=== PATIENT | female | born 1970 | race African-American/Black ===

== ENCOUNTER → 2018-06-04 | Outpatient (CLI) | payer OTHER ==
[~2018-06-04] MED LIST: PROTONIX 20 MG20 M1 PO; ZOFRAN ODT4 MG PO
== END ==
LOC: RAD 01:59
DX: Z12.31 Encounter for screening mammogram for malignant neoplasm of breast (principal); D25.9 Leiomyoma of uterus, unspecified

== ENCOUNTER → 2018-06-22 | Outpatient (CLI) | payer OTHER | LOC: RAD 01:50 | DX: R92.8 Other abnormal and inconclusive findings on diagnostic imaging of breast (principal) ==

== ENCOUNTER → 2018-09-09 | Outpatient (CLI) | payer OTHER | LOC: ULTRA 07:49 | DX: R10.9 Unspecified abdominal pain (principal); R14.0 Abdominal distension (gaseous) ==

== ENCOUNTER → 2019-04-27 | Outpatient (CLI) | payer OTHER | LOC: NUC 08:08 | DX: R10.11 Right upper quadrant pain (principal) ==

== ENCOUNTER 2019-06-21 05:24 | Observation (INO) | payer OTHER ==
[~2019-06-21] VITALS: Ht 170.2 cm; Wt 77.1 kg
[~2019-06-21 05:24] MED LIST changes: +MULTIVITAMINS1 EAC7 PO
[2019-06-21 12:02] LABS: CALCIUM 9.2 mg/dL (8.5-10.1); POTASSIUM 3.4 mmol/L (3.5-5.1)
[2019-06-21 12:42] VITALS: BP 143/93
--- NOTE | 2019-06-21 15:31 | H ---
[facility] [place] [address] HISTORY AND PHYSICAL Name: TARAN BROCK Julian Room #: 150-5 [facility]..#: [id number] Admission: 06/21/19 ������������������ Attend Phys: Yves Small MD Discharge: ������������������ Date of : 66 Report #: [id number] THIS REPORT FOR: //name// CC: Yves Fu DATE OF SERVICE: 06/21/2019 PREOP H AND P PREOPERATIVE DIAGNOSIS: Acalculous cholecystitis. HISTORY OF PRESENT ILLNESS: The patient is a 48-year-old who has been complaining of abdominal pain. She says she usually has pain around her menstrual cycle time. Pain is located in the epigastric area. She has 3 episodes per month. The pain is usually short lived. This started October of last year. The pain subsided and then returned in March. Occasionally, the pain move to the right upper quadrant. Does not go to her back or shoulder. No nausea or vomiting. No increased gas. No diarrhea. The patient does have bloating associated with this. She says she feels better if she massages that area or presses that area. She had a particular episode in March after eating fried food. She developed pain that was sharp, needle-like jabbing her. The pain was rated as 6/10. Fried food typically causes constipation. An ultrasound was performed in May, she had uterine fibroids, no stones were seen. The patient had a PIPIDA scan done, which showed a normal gallbladder ejection fraction of 60%, but she had reproduction of her pain in the epigastric area. The patient is felt to have acalculous cholecystitis with multiple episodes of pain. She is recommended to have her gallbladder removed. PAST MEDICAL HISTORY: Possible gastroesophageal reflux disorder, mild obesity. The patient denies any heart disease, denies high blood pressure, denies diabetes, denies liver disease, denies kidney disease, denies lung disease, denies any history of bleeding or blood clot. The patient has a history of obesity. PAST SURGICAL HISTORY: The patient had hernia surgery in 2002. ALLERGIES: She is not allergic to anything. MEDICATIONS: Omeprazole 20 mg. She had been on Protonix before that. This was started in 2012 and 2013. FAMILY HISTORY: High blood pressure. There is diabetes that runs on father's side. SOCIAL HISTORY: Occupational: The patient works at a desk job. Does not smoke [facility] [address] [place] [address] HISTORY AND PHYSICAL Name: TARAN BROCK Julian Room #: 150-5 [facility]#: [id number] Admission: 06/21/19 ������������������ Attend Phys: Yves Small MD Discharge: ������������������ Date of : 66 Report #: [id number] and drink. REVIEW OF SYSTEMS: No headache, blurred vision, no chest pain, shortness of breath, palpitation. No back pain, no lower extremity pain. No numbness or weakness. IMPRESSION: The patient is a 48-year-old with abdominal pain that has been recurrent, periodic attack about 3 times a month. This started in October and then picked up again in March. Her pain location is fairly classic gallbladder disease. She does not have any stones. PIPIDA scan did reproduce her pain. She has had history of GERD, which I think it probably is part of the gallbladder process also. RECOMMENDATION: The patient is recommended to have gallbladder removed. She is healthy. She will tolerate surgery well. Laparoscopic cholecystectomy was discussed in detail and the patient understands the procedure, the risk of bleeding, infection was discussed, risk of bile leak, risk of common bile duct injury was discussed. The patient does want to proceed with surgery. ��������������������������������������������� <ELECTRONICALLY SIGNED> ���������������������������������������� By: Yves Small MD ��������������������������������������������� 06/21/19 1531 1026 1128 Yves Small MD /nt
--- NOTE | 2019-06-21 16:25 | EKG ---
[address] [address] ELECTROCARDIOGRAM REPORT Name: DALIA BROCKRA Jordan Room #: 150-5 [facility].#: [id number] ������������������ Admission: 06/21/19 ������������������ Attend Phys: Yves Small MD Discharge: ������������������ Date of : 66 Report #: [id number] ����������������������������������������������������������������� [id number] THIS REPORT FOR: //name// [facility] Test Date: 2019-06-21 Test Time: 12:09:42 Pat Name: TARAN BROCK Department: Room: 150 5 Gender: F Planning Analyst: CASA : 1970 Requested By: Yves Small Order Number: [id number] MD: Hitesh Jimenez Measurements Intervals Chama Rate: 74 P: 69 MA: 160 QRS: -2 QRSD: 90 T: 30 QT: 387 QTc: 430 Interpretive Statements Sinus rhythm No significant abnormality No previous ECG available for comparison Electronically Signed On 06-21-2019 16:24:58 CDT by Hitesh Jimenez [email or web address] ��������������������������������������������� <ELECTRONICALLY SIGNED> ���������������������������������������� By: Hitesh Jimenez MD, [facility] ��������������������������������������������� 06/21/19 1624 1209 1209 Hitesh Jimenez MD, FACC /EPI
[2019-06-21 17:40] VITALS: BP 129/92
[2019-06-21 19:25] VITALS: BP 124/91
[2019-06-21 20:32] VITALS: BP 134/90
[2019-06-21 20:50] VITALS: BP 147/90
[2019-06-21 23:55] VITALS: BP 133/82
[2019-06-22 04:45] VITALS: BP 126/72
[2019-06-22 07:37] VITALS: BP 135/83
[2019-06-22] MEDS ORDERED: HYDROCODON-ACE1 EAC7 PO (13:54)
--- NOTE | 2019-06-22 14:01 | O ---
[facility] [place] [address] OPERATIVE REPORT Name: DALIA BROCKRA Jordan [id number] Admission: 06/21/19 ������������������ Attend Phys: Yves Small MD Discharge: ������������������ Date of : 66 Report #: [id number] THIS REPORT FOR: //name// CC: Yves Fu MD PREOPERATIVE DIAGNOSES: Acalculous cholecystitis, abdominal pain. POSTOPERATIVE DIAGNOSES: Acalculous cholecystitis, abdominal pain with cholesterolosis. PROCEDURES PERFORMED: Laparoscopic cholecystectomy with cholangiogram. ANESTHESIA: General. SURGEON: Yves Small M.D. COMPLICATIONS: None. ESTIMATED BLOOD LOSS: 5 mL. PROCEDURE NOTE: With the patient under general anesthesia, abdomen was prepped and draped in sterile fashion. The patient did receive preoperative IV antibiotic. Timeout was performed. The patient has had prior umbilical hernia repair and epigastric hernia repair. An incision was made on the right side of the abdomen about an inch and a half away from the umbilicus where her previous hernia was. A cutdown was performed. A 2 cm incision was made in the skin. The anterior fascia was identified. The anterior fascia was incised sharply. The 0 Vicryl suture placed on the fascia edges for retraction. The muscle was spread. The posterior fascia was then identified. The posterior fascia was free. This was grasped with hemostat and opened under visualization. Again 0 Vicryl suture was placed on the fascial edges for retraction. Abdominal cavity was free of air. An 11 mm trocar with the balloon was placed. The balloon was inflated sealing the trocar to the wall. Under laparoscopic evaluation with a 10 mm scope, omentum was adhesed to the prior surgery area. The transverse colon was attached to the omentum. The transverse colon was preserved from harm. The patient does have some increased stool present. The patient did have a quite large uterus that was even palpable. The entire uterus was large. There was a distinct leiomyoma about 2.5 cm in size to the patient's right of the uterus. The patient was placed in the reverse Trendelenburg position, right side tilted up. Two 5 mm trocars were placed laterally with another 5 mm trocar was placed in right epigastrium. Gallbladder was lifted over the liver. There was no adhesion to the gallbladder. The common duct was visualized almost the entirety because of health in patient was. The peritoneum was dissected free. Cystic duct and artery was isolated. Critical view was able to be obtained. There were no other structures in the triangle of Calot. Cystic duct was [address] [address] OPERATIVE REPORT Name: TARAN BROCK Julian Room #: 364-P [facility] Janelle Rosales#: [id number] Admission: 06/21/19 ������������������ Attend Phys: Yves Small MD Discharge: ������������������ Date of : 66 Report #: [id number] isolated. Clip was placed in junction of cystic duct to the gallbladder. Opening was made in the cystic duct. Cystic duct was milked. There was no stone in the cystic duct. Cholangiogram catheter was placed. Fluoroscopic cholangiogram was obtained. The cholangiogram catheter was identified in the cystic duct, no harm to the common duct. The cystic duct is somewhat torturous and common duct filled out well. Had good distal filling and then filled into duodenum. The common hepatic was also filled, but not to the same degree. The upper ducts in the liver were identified and well filled. No filling defect identified in the common duct. Cholangiogram catheter was then removed. The cystic duct was then clipped x 2 and then divided. The cystic artery was then isolated, clipped x 2 proximally, 1 distally, and then divided. Gallbladder was free from the liver bed without difficulty. The gallbladder was retrieved through the cutdown site, came out easily. The gallbladder was opened off the field. There is cholesterolosis. There is cholesterol material, which formed a sludge ball in the bile. Pictures were taken. Liver bed was checked, hemostasis excellent. Irrigation was aspirated out. The patient was flattened out and the trocars were removed. CO2 was evacuated as much as possible. The fascia, at the cutdown side, with the help of the retention sutures was closed. Posterior layer was closed with a 0 Vicryl [id number] x 2. The anterior fascia was closed with 0 Vicryl, [id number] x 2 also. Skin was irrigated. Skin was closed with 5-0 PDS. Steri-Strip, Band-Aids applied. The patient was awakened and taken to recovery room. He tolerated the procedure well. ��������������������������������������������� <ELECTRONICALLY SIGNED> ���������������������������������������� By: Yves Small MD ��������������������������������������������� 06/22/19 1401 1545 1624 Yves Small MD /nt
[2019-06-22 14:22] VITALS: BP 135/83
--- NOTE | 2019-06-22 17:11 | PATH ---
[facility] [address] [place] [address] PATHOLOGY RPT PROCEDURE Name: TARAN BROCK Room #: 364-P [facility] Janelle Rosales#: [id number] ������������������ Admission: 06/21/19 ������������������ Date of : 66 Discharge: 06/22/19 Report #: [id number] Path Case #: [id number] [facility] Accession Number: [id number] . 01 Material submitted: . gallbladder - GALLBLADDER . 01 Clinical history: . Cholecystitis . 02 Diagnosis: Gallbladder, cholecystectomy: - Mild chronic cholecystitis. - Reactive lymph node. (IUV:pit; 06/22/2019) QTP/06/22/2019 . 02 Electronically signed: . Nell Colin MD, Pathologist NPI- [id number] . 01 Gross description: . The specimen is received in formalin, labeled "Taran Brock, gallbladder", is a previously opened gallbladder measuring 7.5 cm in length and 2.5 cm in maximum diameter with dull and green serosa. A 0.5 x 0.1 x 0.1 cm soft lymph node is identified in the region of the gallbladder neck. The cystic duct is patent. The mucosa is callahan-brown and granular with no cholesterolosis. No discrete calculi are identified within the lumen or the container. The wall is a 0.1 cm in average thickness. Representatively submitted in A1.([facility]; 06/21/2019) SHS/SHS . 02 Pathologist provided ICD-10: K81.1 . 02 CPT . 222004 Specimen Comment: A courtesy copy of this report has been sent to Specimen Comment: [phone]. Specimen Comment: Report sent to / DR SILVEIRA Performed at: [address] [id number] MD Tone Manzano MD Phone: [phone] Performed at: [address] [id number] [address] [address] PATHOLOGY RPT PROCEDURE Name: TARAN BROCK Room #: 364-P ZEE Rosales#: [id number] ������������������ Admission: 06/21/19 ������������������ Date of : 66 Discharge: 06/22/19 Report #: [id number] Path Case #: [id number] MD Nell Colin MD Phone: [phone]
== END 2019-06-22 16:11 | disposition home or self-care (01) ==
LOC: TBA 05:24 → OR 05:24 → 3W 17:32 → OR 17:33 → 3W 17:33 → ENTRNSPT 06-22 14:51 → EDTRNSPTSTS 06-22 14:52 → 3W 06-22 16:11
PROVIDERS: ADMIT Surgery
DX: K81.9 Cholecystitis, unspecified (principal); K82.4 Cholesterolosis of gallbladder; K52.9 Noninfective gastroenteritis and colitis, unspecified; E66.9 Obesity, unspecified; Z79.899 Other long term (current) drug therapy
CPT/HCPCS: 10779; 50010; 50101; 50411; 50555; 50558; 50886; 51489; 53307; 53310; 55245; 55317; 56462; 56525; 56526; 62110; 62900; 70005

== ENCOUNTER → 2021-03-07 | Outpatient (CLI) | payer OTHER ==
[~2021-03-07] MED LIST changes: +HYDROCODON-ACE1 EAC7 PO
== END ==
LOC: RAD 09:31
PROVIDERS: ATTEND Neuromusculoskeletal Medicine & OMM
DX: Z12.31 Encounter for screening mammogram for malignant neoplasm of breast (principal)